=== PATIENT | female | born 1960 | race Caucasian/White ===

== ENCOUNTER 2017-11-15 17:56 | Inpatient (IN) | payer OTHER ==
[2017-11-15 18:58] LABS: URINE BLOOD (Dip) POC Trace-intact (NEGATIVE); URINE GLUCOSE (Dip) POC Negative (NEGATIVE); URINE KETONES (Dip) POC Trace (NEGATIVE); URINE LEUKOCYTE EST (Dip) POC 1+ (NEGATIVE); URINE NITRITE (Dip) POC Negative (NEGATIVE); URINE TOTAL PROTEIN POC 3+ (NEGATIVE)
[2017-11-15] MEDS ORDERED: ONDANSETRON 4 MG INJ IV ×2 (19:23→20:30)
[2017-11-15] MEDS: SODIUM CHLORIDE 0.9% 1L BAG IV* (19:26)
[2017-11-15 19:28] LABS: ADD MAN DIFF? NO
[2017-11-15] MEDS ORDERED: PANTOPRAZOLE 40 MG INJ IV (19:30)
[2017-11-15] MEDS ORDERED: LORAZEPAM 2 MG INJ IV (19:30)
[2017-11-15] MEDS ORDERED: MULTIVITAMINS 10 ML, THIAMINE 100 MG, FOLIC ACID 1 MG, MAGNESIUM SULFATE 2 GM in SOD CH... IV (19:30)
[2017-11-15] MEDS: ACETAMINOPHEN 325 MG TAB PO (19:32)
[2017-11-15 19:33] LABS: ABNORMAL IP MESSAGE 1; BASOPHILS % 0.2 % (0.0-2.0); EOSINOPHILS % 0.2 % (0.0-7.0); HEMATOCRIT 24.7 % (37.0-47.0); HEMOGLOBIN 7.1 g/dl (12.0-16.0); LYMPHOCYTES # 0.6 10^3/ul (0.8-2.9); LYMPHOCYTES % 5.1 % (15.0-51.0); MEAN CORPUSCULAR HEMOGLOBIN 19.9 pg (29.0-33.0); MEAN CORPUSCULAR HGB CONC 28.7 g/dl (32.0-37.0); MEAN CORPUSCULAR VOLUME 69.2 fl (82.0-101.0); MEAN PLATELET VOLUME 9.6 fl (7.4-10.4); MONOCYTE # 0.6 10^3/ul (0.3-0.9); MONOCYTES % 5.1 % (0.0-11.0); NEUTROPHIL # 10.9 10^3/ul (1.6-7.5); NEUTROPHILS % 88.9 % (39.0-77.0); NUCLEATED RED BLOOD CELLS% 0.2 /100WBC (0.0-0.0); PLATELET COUNT 309 10^3/UL (140-415); RED BLOOD COUNT 3.57 10^6/ul (4.20-5.40); RED CELL DISTRIBUTION WIDTH 16.1 % (11.5-14.5)
[2017-11-15 19:33] LABS: WHITE BLOOD COUNT 12.3 10^3/ul (4.8-10.8)
[2017-11-15] MEDS: ONDANSETRON 4 MG INJ IV (19:34)
[2017-11-15] MEDS: morphine 4 MG/ML VIAL IV (19:34)
[2017-11-15 19:35] LABS: POSITIVE DIFF @See below
[2017-11-15] MEDS: CEFEPIME 2GM/50 ML (PMX) 50 ML IVPB (19:38)
[2017-11-15 19:48] LABS: PARTIAL THROMBOPLASTIN TIME 27.4 Sec (25.0-35.0); PROTIME 13.3 Sec (11.9-14.9)
[2017-11-15 19:52] LABS: LACTIC ACID 1.8 mmol/L (0.5-2.0)
[2017-11-15 19:53] LABS: ALANINE AMINOTRANSFERASE 31 IU/L (13-69); ALBUMIN 4.1 g/dl (3.3-4.9); ALBUMIN/GLOBULIN RATIO 1.24; ALKALINE PHOSPHATASE 119 IU/L (42-121); ANION GAP 17 (8-16); ASPARTATE AMINO TRANSFERASE 26 IU/L (15-46); BILIRUBIN,INDIRECT 0.4 mg/dl (0-1.1); BILIRUBIN,TOTAL 0.4 mg/dl (0.2-1.3); BLOOD UREA NITROGEN 10 mg/dl (7-20); CALCIUM 9.3 mg/dl (8.4-10.2); CARBON DIOXIDE 25 mmol/L (21-31); CHLORIDE 98 mmol/L (97-110); CREATININE 0.74 mg/dl (0.44-1.00); GLUCOSE 137 mg/dl (70-220); LIPASE 76 U/L (23-300); POTASSIUM 3.8 mmol/L (3.5-5.1); SODIUM 136 mmol/L (135-144); TOTAL PROTEIN 7.4 g/dl (6.1-8.1)
[2017-11-15 20:07] LABS: TROPONIN-I < 0.010 ng/ml (0.000-0.120)
[2017-11-15] MEDS ORDERED: ACETAMINOPHEN 325 MG TAB PO (20:30)
[2017-11-15] MEDS: VANCOMYCIN 1 GM (PMX) 250 ML IVPB (20:41)
[2017-11-15] MEDS ORDERED: BISACODYL (EC) 5 MG TAB PO (21:00)
[2017-11-15] MEDS ORDERED: NACL 0.9% 3 ML SYG IV (21:00)
[2017-11-15] MEDS: INSULIN ASPART [NOVOLOG] 3 ML PEN SC (21:00)
[2017-11-15] MEDS ORDERED: DOCUSATE SODIUM 100 MG CAP PO (21:00)
[2017-11-15] MEDS ORDERED: GLUCAGON 1 MG INJ IM (21:15)
[2017-11-15] MEDS ORDERED: DEXTROSE 50% 50 ML SYRINGE IV ×2 (21:15)
[2017-11-15] MEDS ORDERED: GLUCOSE GEL 15 GRAM TUBE BUCCAL (21:15)
[2017-11-15] MEDS ORDERED: GLUCOSE GEL 15 GRAM TUBE PO ×2 (21:15)
[2017-11-15 21:37] LABS: LACTIC ACID 1.1 mmol/L (0.5-2.0)
[2017-11-15] MEDS: ATORVASTATIN 40 MG TAB PO (22:51)
[2017-11-15] MEDS: CALCIUM/VITAMIN D (500/200) TAB PO (22:51)
[2017-11-16 00:55] LABS: LACTIC ACID 0.9 mmol/L (0.5-2.0)
[2017-11-16] MEDS: ACCU-CHEK XX (02:00)
[2017-11-16] MEDS: ACETAMINOPHEN 325 MG TAB PO ×3 (02:52→20:14)
[2017-11-16] MEDS: morphine 2 MG INJ IV (04:06)
[2017-11-16] MEDS: IBUPROFEN 600 MG TAB PO (04:49)
[2017-11-16 06:14] LABS: ADD MAN DIFF? NO
[2017-11-16] MEDS: PANTOPRAZOLE (EC) 40 MG TAB PO (06:17)
[2017-11-16 06:18] LABS: ABNORMAL IP MESSAGE 1; BASOPHILS % 0.3 % (0.0-2.0); EOSINOPHILS % 0.1 % (0.0-7.0); HEMATOCRIT 22.9 % (37.0-47.0); LYMPHOCYTES % 10.6 % (15.0-51.0); MEAN CORPUSCULAR HEMOGLOBIN 20.4 pg (29.0-33.0); MEAN CORPUSCULAR HGB CONC 28.8 g/dl (32.0-37.0); MEAN CORPUSCULAR VOLUME 70.9 fl (82.0-101.0); MEAN PLATELET VOLUME 10.1 fl (7.4-10.4); MONOCYTE # 0.6 10^3/ul (0.3-0.9); MONOCYTES % 6.3 % (0.0-11.0); NEUTROPHIL # 7.4 10^3/ul (1.6-7.5); NEUTROPHILS % 82.3 % (39.0-77.0); NUCLEATED RED BLOOD CELLS% 0.2 /100WBC (0.0-0.0); PLATELET COUNT 246 10^3/UL (140-415); RED BLOOD COUNT 3.23 10^6/ul (4.20-5.40); RED CELL DISTRIBUTION WIDTH 17.3 % (11.5-14.5)
[2017-11-16 06:41] LABS: IRON 28 ug/dl (35-150)
[2017-11-16 06:43] LABS: HEMOGLOBIN A1C 7.5 % (0-5.9)
[2017-11-16 06:50] LABS: % IRON SATURATION 7 % SAT (22-52); TOTAL IRON BINDING CAPACITY 387 ug/dl (241-421)
[2017-11-16 07:02] LABS: POSITIVE DIFF @See below
[2017-11-16 07:04] LABS: HEMOGLOBIN 6.6 g/dl (12.0-16.0)
[2017-11-16 07:05] LABS: PATH REVIEW? YES
[2017-11-16 07:10] LABS: ALANINE AMINOTRANSFERASE 27 IU/L (13-69); ALBUMIN 3.1 g/dl (3.3-4.9); ALBUMIN/GLOBULIN RATIO 0.96; ALKALINE PHOSPHATASE 83 IU/L (42-121); ANION GAP 10 (8-16); ASPARTATE AMINO TRANSFERASE 19 IU/L (15-46); BILIRUBIN,INDIRECT 0.4 mg/dl (0-1.1); BILIRUBIN,TOTAL 0.4 mg/dl (0.2-1.3); BLOOD UREA NITROGEN 10 mg/dl (7-20); CALCIUM 7.8 mg/dl (8.4-10.2); CARBON DIOXIDE 24 mmol/L (21-31); CHLORIDE 105 mmol/L (97-110); CHOL/HDL RATIO 2.5 RATIO; CHOLESTEROL 90 mg/dl (100-200); CREATININE 0.72 mg/dl (0.44-1.00); GLUCOSE 96 mg/dl (70-220); HDL CHOLESTEROL 35 mg/dl (35-98); LDL CHOLESTEROL,CALCULATED 35 mg/dl; MAGNESIUM 1.5 mg/dl (1.7-2.5); POTASSIUM 3.2 mmol/L (3.5-5.1); SODIUM 136 mmol/L (135-144); TOTAL PROTEIN 6.3 g/dl (6.1-8.1); TRIGLYCERIDES 99 mg/dl (0-149)
[2017-11-16] MEDS: CEFTRIAXONE 2 GM/50 ML (PMX) 50 ML IVPB (07:59)
[2017-11-16] MEDS: CALCIUM/VITAMIN D (500/200) TAB PO ×2 (07:59→20:13)
[2017-11-16] MEDS: INSULIN ASPART [NOVOLOG] 3 ML PEN SC ×4 (08:00→20:18)
[2017-11-16] MEDS ORDERED: VANCOMYCIN IV PER PHARMACY XX (09:00)
[2017-11-16] MEDS ORDERED: NON-FORMULARY/PATIENT OWN MED (Omeprazole* 20 MG) PO (09:00)
[2017-11-16] MEDS: POTASSIUM CHLORIDE (SR) 20 MEQ TAB PO ×2 (09:25→20:13)
[2017-11-16] MEDS: MAGNESIUM SULFATE 3 GM in DEXTROSE 5% 100 ML IVPB (10:05)
[2017-11-16 10:18] LABS: RETICULOCYTE RBC 3.42
[2017-11-16 10:18] LABS: RETICULOCYTE COUNT # 0.039 X10^6 (0.020-0.110); RETICULOCYTE COUNT % 1.1 % (0.5-1.5)
[2017-11-16 10:51] LABS: LACTATE DEHYDROGENASE 423 IU/L (313-618)
[2017-11-16 11:22] LABS: CANCER ANTIGEN 125 < 5.5 U/ml (0.0-35.0)
[2017-11-16 11:22] LABS: CARCINOEMBRYONIC ANTIGEN 0.6 ng/ml (0.0-5.0)
[2017-11-16 11:59] LABS: FOLATE 12.4 ng/ml (2.8-20.0)
[2017-11-16] MEDS ORDERED: metroNIDAZOLE 500 MG/NS (PMX) 100 ML IVPB (12:00)
[2017-11-16 13:05] LABS: IMMEDIATE SPIN CROSSMATCH 1 3
[2017-11-16] MEDS: VANCOMYCIN 1 GM 250 ML IVPB (13:09)
[2017-11-16] MEDS: PIPER-TAZO 3.375 GM IV (PMX) 100 ML IVPB ×3 (15:29→21:32)
[2017-11-16 15:43] LABS: HEMATOCRIT 27.3 % (37.0-47.0); HEMOGLOBIN 8.1 g/dl (12.0-16.0)
[2017-11-16] MEDS: SOD FERRIC GLUC COMPLX 125 MG in SOD CHLORIDE 0.9% 100 ML IVPB (16:45)
[2017-11-16 18:27] LABS: OCCULT BLOOD STOOL NEGATIVE (NEGATIVE)
[2017-11-16] MEDS: INSULIN GLARGINE [LANTus] (100 UNITS/ML) SYG SC (20:12)
[2017-11-16] MEDS: ATORVASTATIN 40 MG TAB PO (20:13)
[2017-11-17] MEDS: VANCOMYCIN 1 GM 250 ML IVPB ×2 (00:27→13:41)
[2017-11-17] MEDS: ACCU-CHEK XX (02:00)
[2017-11-17] MEDS: PIPER-TAZO 3.375 GM IV (PMX) 100 ML IVPB ×5 (03:17→17:17)
[2017-11-17] MEDS: PANTOPRAZOLE (EC) 40 MG TAB PO (05:59)
[2017-11-17] MEDS: ACETAMINOPHEN 325 MG TAB PO (06:03)
[2017-11-17 06:16] LABS: ADD MAN DIFF? NO
[2017-11-17 06:17] LABS: BASOPHILS % 0.3 % (0.0-2.0); EOSINOPHILS % 0.3 % (0.0-7.0); HEMATOCRIT 27.3 % (37.0-47.0); HEMOGLOBIN 8.3 g/dl (12.0-16.0); LYMPHOCYTES # 1.2 10^3/ul (0.8-2.9); LYMPHOCYTES % 10.3 % (15.0-51.0); MEAN CORPUSCULAR HGB CONC 30.4 g/dl (32.0-37.0); MEAN CORPUSCULAR VOLUME 72.2 fl (82.0-101.0); MEAN PLATELET VOLUME 10.1 fl (7.4-10.4); MONOCYTE # 0.9 10^3/ul (0.3-0.9); MONOCYTES % 7.6 % (0.0-11.0); NEUTROPHIL # 9.4 10^3/ul (1.6-7.5); NUCLEATED RED BLOOD CELLS # 0.1 10^3/ul (0.0-0.0); NUCLEATED RED BLOOD CELLS% 0.4 /100WBC (0.0-0.0); PLATELET COUNT 247 10^3/UL (140-415); RED BLOOD COUNT 3.78 10^6/ul (4.20-5.40); RED CELL DISTRIBUTION WIDTH 17.6 % (11.5-14.5)
[2017-11-17 06:17] LABS: WHITE BLOOD COUNT 11.7 10^3/ul (4.8-10.8)
[2017-11-17 06:45] LABS: PHOSPHORUS 2.5 mg/dl (2.5-4.9)
[2017-11-17 06:59] LABS: ANION GAP 14 (8-16); BLOOD UREA NITROGEN 6 mg/dl (7-20); CALCIUM 8.3 mg/dl (8.4-10.2); CARBON DIOXIDE 23 mmol/L (21-31); CHLORIDE 104 mmol/L (97-110); GLUCOSE 103 mg/dl (70-220); POTASSIUM 3.7 mmol/L (3.5-5.1); SODIUM 137 mmol/L (135-144)
[2017-11-17] MEDS: INSULIN ASPART [NOVOLOG] 3 ML PEN SC ×4 (08:00→21:00)
[2017-11-17] MEDS: LOSARTAN 50 MG TAB PO (09:02)
[2017-11-17] MEDS: CALCIUM/VITAMIN D (500/200) TAB PO ×2 (09:03→21:51)
[2017-11-17] MEDS: POLYETHYLENE GLYCOL 3350 119 GM POWDER PO ×2 (09:09→17:17)
[2017-11-17] MEDS: MAGNESIUM CITRATE 300 ML BTL PO (09:09)
[2017-11-17] MEDS: BISACODYL (EC) 5 MG TAB PO ×2 (09:10→17:19)
[2017-11-17 09:31] LABS: PROTEIN, TOTAL 6.2 g/dL (6.1-8.1)
[2017-11-17] MEDS: SOD CHLORIDE 0.9% 250 ML IV (12:28)
[2017-11-17] MEDS: SOD FERRIC GLUC COMPLX 125 MG in SOD CHLORIDE 0.9% 100 ML IVPB (17:17)
[2017-11-17] MEDS ORDERED: morphine LIQ (10 MG/5 ML) CUP PO (20:00)
[2017-11-17] MEDS: ATORVASTATIN 40 MG TAB PO (21:51)
[2017-11-17] MEDS: INSULIN GLARGINE [LANTus] (100 UNITS/ML) SYG SC (21:53)
[2017-11-18] MEDS: PIPER-TAZO 3.375 GM IV (PMX) 100 ML IVPB ×4 (00:19→20:48)
[2017-11-18] MEDS: ACCU-CHEK XX (02:00)
[2017-11-18 02:18] LABS: VANCOMYCIN,TROUGH 12.3 ug/ml (10.0-20.0)
[2017-11-18] MEDS: VANCOMYCIN 1 GM 250 ML IVPB ×2 (02:40→18:28)
[2017-11-18] MEDS: PANTOPRAZOLE (EC) 40 MG TAB PO (06:18)
[2017-11-18 06:46] LABS: ADD MAN DIFF? NO
[2017-11-18 06:51] LABS: WHITE BLOOD COUNT 7.9 10^3/ul (4.8-10.8)
[2017-11-18 06:51] LABS: BASOPHIL # 0.1 10^3/ul (0.0-0.1); BASOPHILS % 0.9 % (0.0-2.0); EOSINOPHILS # 0.2 10^3/ul (0.0-0.5); EOSINOPHILS % 2.7 % (0.0-7.0); HEMATOCRIT 30.4 % (37.0-47.0); HEMOGLOBIN 9.1 g/dl (12.0-16.0); LYMPHOCYTES # 1.5 10^3/ul (0.8-2.9); LYMPHOCYTES % 18.7 % (15.0-51.0); MEAN CORPUSCULAR HEMOGLOBIN 21.8 pg (29.0-33.0); MEAN CORPUSCULAR HGB CONC 29.9 g/dl (32.0-37.0); MEAN CORPUSCULAR VOLUME 72.7 fl (82.0-101.0); MEAN PLATELET VOLUME 10.3 fl (7.4-10.4); MONOCYTE # 1.1 10^3/ul (0.3-0.9); MONOCYTES % 14.1 % (0.0-11.0); NEUTROPHIL # 4.9 10^3/ul (1.6-7.5); NEUTROPHILS % 62.6 % (39.0-77.0); PLATELET COUNT 277 10^3/UL (140-415); RED BLOOD COUNT 4.18 10^6/ul (4.20-5.40); RED CELL DISTRIBUTION WIDTH 18.1 % (11.5-14.5)
[2017-11-18 07:19] LABS: MAGNESIUM 1.9 mg/dl (1.7-2.5)
[2017-11-18 07:19] LABS: PHOSPHORUS 3.6 mg/dl (2.5-4.9)
[2017-11-18 07:20] LABS: ALANINE AMINOTRANSFERASE 26 IU/L (13-69); ALBUMIN 3.5 g/dl (3.3-4.9); ALBUMIN/GLOBULIN RATIO 1.12; ALKALINE PHOSPHATASE 95 IU/L (42-121); ANION GAP 10 (8-16); ASPARTATE AMINO TRANSFERASE 29 IU/L (15-46); BILIRUBIN,INDIRECT 0.4 mg/dl (0-1.1); BILIRUBIN,TOTAL 0.4 mg/dl (0.2-1.3); BLOOD UREA NITROGEN 5 mg/dl (7-20); CALCIUM 8.6 mg/dl (8.4-10.2); CARBON DIOXIDE 24 mmol/L (21-31); CHLORIDE 109 mmol/L (97-110); CREATININE 0.69 mg/dl (0.44-1.00); GLUCOSE 87 mg/dl (70-220); POTASSIUM 3.3 mmol/L (3.5-5.1); SODIUM 140 mmol/L (135-144); TOTAL PROTEIN 6.6 g/dl (6.1-8.1)
[2017-11-18] MEDS: INSULIN ASPART [NOVOLOG] 3 ML PEN SC ×4 (08:00→21:00)
[2017-11-18] MEDS: LOSARTAN 50 MG TAB PO (08:32)
[2017-11-18] MEDS: CALCIUM/VITAMIN D (500/200) TAB PO ×2 (08:32→20:08)
[2017-11-18] MEDS ORDERED: POTASSIUM CHLORIDE (SR) 20 MEQ TAB PO (09:04)
[2017-11-18] MEDS: FERROUS SULFATE (EC) 325 MG TAB PO ×3 (09:22→22:30)
[2017-11-18] MEDS: BARIUM SULF 2% 450 ML BTL (BERRY SMOOTHIE) PO (11:00)
[2017-11-18] MEDS: POTASSIUM CHLORIDE 100 ML IVPB (12:00)
[2017-11-18] MEDS ORDERED: hydrALAzine 20 MG INJ (14:31)
[2017-11-18] MEDS ORDERED: PROPOFOL 40 ML (14:31)
[2017-11-18] MEDS: ONDANSETRON 4 MG TAB PO (15:50)
[2017-11-18] MEDS: ONDANSETRON INJ 8 MG in DEXTROSE 5% 50 ML IV (17:55)
[2017-11-18] MEDS: ACETAMINOPHEN 325 MG TAB PO (20:06)
[2017-11-18] MEDS: ATORVASTATIN 40 MG TAB PO (20:08)
[2017-11-18] MEDS: INSULIN GLARGINE [LANTus] (100 UNITS/ML) SYG SC (20:18)
[2017-11-18] MEDS: SOD FERRIC GLUC COMPLX 125 MG in SOD CHLORIDE 0.9% 100 ML IVPB (22:07)
[2017-11-19] MEDS: PIPER-TAZO 3.375 GM IV (PMX) 100 ML IVPB ×3 (01:25→12:54)
[2017-11-19] MEDS: ACCU-CHEK XX (01:56)
[2017-11-19] MEDS: PANTOPRAZOLE (EC) 40 MG TAB PO ×2 (05:37→05:38)
[2017-11-19 07:41] LABS: ADD MAN DIFF? NO
[2017-11-19 07:51] LABS: WHITE BLOOD COUNT 8.8 10^3/ul (4.8-10.8)
[2017-11-19 07:51] LABS: ADD UMIC YES; BASOPHIL # 0.1 10^3/ul (0.0-0.1); BASOPHILS % 0.7 % (0.0-2.0); EOSINOPHILS # 0.2 10^3/ul (0.0-0.5); EOSINOPHILS % 2.1 % (0.0-7.0); HEMATOCRIT 30.1 % (37.0-47.0); HEMOGLOBIN 9.1 g/dl (12.0-16.0); LYMPHOCYTES # 1.8 10^3/ul (0.8-2.9); LYMPHOCYTES % 20.1 % (15.0-51.0); MEAN CORPUSCULAR HEMOGLOBIN 21.9 pg (29.0-33.0); MEAN CORPUSCULAR HGB CONC 30.2 g/dl (32.0-37.0); MEAN CORPUSCULAR VOLUME 72.5 fl (82.0-101.0); MEAN PLATELET VOLUME 9.9 fl (7.4-10.4); MONOCYTES % 11.9 % (0.0-11.0); NEUTROPHIL # 5.6 10^3/ul (1.6-7.5); NEUTROPHILS % 64.1 % (39.0-77.0); PLATELET COUNT 294 10^3/UL (140-415); RED BLOOD COUNT 4.15 10^6/ul (4.20-5.40); RED CELL DISTRIBUTION WIDTH 18.7 % (11.5-14.5); UR ASCORBIC ACID NEGATIVE (NEGATIVE); UR BILIRUBIN (Dip) NEGATIVE (NEGATIVE); UR BLOOD (Dip) NEGATIVE (NEGATIVE); UR CLARITY CLEAR (CLEAR); UR COLOR YELLOW (YELLOW); UR GLUCOSE (Dip) NEGATIVE (NEGATIVE); UR KETONES (Dip) 1+ mg/dL (NEGATIVE); UR LEUKOCYTE ESTERASE (Dip) NEGATIVE Leu/ul (NEGATIVE); UR NITRITE (Dip) NEGATIVE (NEGATIVE); UR RBC 1 /HPF (0-5); UR SPECIFIC GRAVITY (Dip) 1.024 (1.003-1.030); UR TOTAL PROTEIN (Dip) 2+ mg/dl (NEGATIVE); UR UROBILINOGEN (Dip) NEGATIVE (NEGATIVE); UR WBC 3 /HPF (0-5)
[2017-11-19] MEDS: INSULIN ASPART [NOVOLOG] 3 ML PEN SC ×3 (08:00→18:16)
[2017-11-19] MEDS: VANCOMYCIN 1 GM 250 ML IVPB (08:24)
[2017-11-19 08:25] LABS: ANION GAP 14 (8-16); BLOOD UREA NITROGEN 7 mg/dl (7-20); CALCIUM 8.8 mg/dl (8.4-10.2); CARBON DIOXIDE 22 mmol/L (21-31); CHLORIDE 106 mmol/L (97-110); CREATININE 0.74 mg/dl (0.44-1.00); GLUCOSE 84 mg/dl (70-220); POTASSIUM 3.1 mmol/L (3.5-5.1); SODIUM 139 mmol/L (135-144)
[2017-11-19] MEDS: CALCIUM/VITAMIN D (500/200) TAB PO (08:28)
[2017-11-19] MEDS: FERROUS SULFATE (EC) 325 MG TAB PO (08:28)
[2017-11-19] MEDS: LOSARTAN 50 MG TAB PO (08:29)
[2017-11-19 09:55] LABS: MAGNESIUM 1.6 mg/dl (1.7-2.5)
[2017-11-19] MEDS: IOHEXOL 14.3 MG(I)/ML (ADULT) BTL PO (10:09)
[2017-11-19] MEDS: IOHEXOL 300MG/ML 150 ML BTL (13:30)
[2017-11-19] MEDS: SOD CHLORIDE 0.9% 100 ML (13:30)
[2017-11-19] MEDS: POTASSIUM CHLORIDE (SR) 20 MEQ TAB PO (13:47)
[2017-11-19] MEDS: SOD FERRIC GLUC COMPLX 125 MG in SOD CHLORIDE 0.9% 100 ML IVPB (18:05)
[2017-11-19 18:31] LABS: HAPTOGLOBIN 220 mg/dL (43-212)
[2017-11-19 23:04] LABS: ALBUMIN 3.3 g/dL (3.8-4.8); ALPHA-1-GLOBULINS 0.3 g/dL (0.2-0.3); ALPHA-2-GLOBULINS 0.7 g/dL (0.5-0.9); BETA 2 GLOBULINS 0.3 g/dL (0.2-0.5); BETA GLOBULINS 0.5 g/dL (0.4-0.6); GAMMA GLOBULINS 1.1 g/dL (0.8-1.7)
== END 2017-11-19 18:45 | disposition home or self-care (01) | DRG 872 ==
LOC: E/R 17:56 → 2NE 20:29
PROVIDERS: Family Medicine
PROC: 0DB98ZX Excision of Duodenum, Via Natural or Artificial Opening Endoscopic, Diagnostic (ICD-10-PCS; principal; 2017-11-18 13:30)
PROC: 0DJD8ZZ Inspection of Lower Intestinal Tract, Via Natural or Artificial Opening Endoscopic (ICD-10-PCS; 2017-11-18 13:30)
PROC: 30233N1 Transfusion of Nonautologous Red Blood Cells into Peripheral Vein, Percutaneous Approach (ICD-10-PCS; 2017-11-18 13:30)
PROC: 30233N1 Transfusion of Nonautologous Red Blood Cells into Peripheral Vein, Percutaneous Approach (ICD-10-PCS; 2017-11-18 13:30)
DX: A41.9 Sepsis, unspecified organism (principal); N39.0 Urinary tract infection, site not specified; D50.9 Iron deficiency anemia, unspecified; E11.9 Type 2 diabetes mellitus without complications; I10 Essential (primary) hypertension; E78.5 Hyperlipidemia, unspecified; R11.2 Nausea with vomiting, unspecified; R19.7 Diarrhea, unspecified; K21.9 Gastro-esophageal reflux disease without esophagitis; Z90.12 Acquired absence of left breast and nipple; Z85.3 Personal history of malignant neoplasm of breast; Z79.4 Long term (current) use of insulin
CPT/HCPCS: 36415; 36430; 70450; 71045; 71260; 72040; 73030-RT; 74177; 76856; 80048; 80053; 80061; 80202; 81001; 81003; 82270; 82378; 82607; 82728; 82746; 82962; 83010; 83036; 83540; 83605; 83615; 83690; 83735; 84100; 84155; 84165; 84443; 84484; 85014; 85018; 85025; 85045; 85610; 85730; 86304; 86674; 86850; 86900; 86901; 86920; 87040; 87045; 87075; 87086; 87177; 87400; 88305; 93005; 96365; 96375; 99291-25

== ENCOUNTER 2018-09-10 10:32 | Observation (INO) | payer OTHER ==
[2018-09-10] MEDS: ASPIRIN 325 MG TAB PO (11:13)
[2018-09-10 11:26] LABS: ADD MAN DIFF? NO
[2018-09-10 11:30] LABS: WHITE BLOOD COUNT 9.9 10^3/ul (4.8-10.8)
[2018-09-10 11:30] LABS: BASOPHIL # 0.1 10^3/ul (0.0-0.1); BASOPHILS % 0.7 % (0.0-2.0); EOSINOPHILS # 0.4 10^3/ul (0.0-0.5); EOSINOPHILS % 3.9 % (0.0-7.0); HEMOGLOBIN 10.2 g/dl (12.0-16.0); LYMPHOCYTES # 3.3 10^3/ul (0.8-2.9); LYMPHOCYTES % 33.2 % (15.0-51.0); MEAN CORPUSCULAR HEMOGLOBIN 24.9 pg (29.0-33.0); MEAN CORPUSCULAR VOLUME 83.1 fl (82.0-101.0); MEAN PLATELET VOLUME 10.6 fl (7.4-10.4); MONOCYTE # 0.8 10^3/ul (0.3-0.9); MONOCYTES % 7.7 % (0.0-11.0); NEUTROPHIL # 5.4 10^3/ul (1.6-7.5); NEUTROPHILS % 54.1 % (39.0-77.0); RED BLOOD COUNT 4.09 10^6/ul (4.20-5.40); RED CELL DISTRIBUTION WIDTH 14.6 % (11.5-14.5)
[2018-09-10 11:46] LABS: ALANINE AMINOTRANSFERASE 13 IU/L (13-69); ALBUMIN 4.6 g/dl (3.3-4.9); ALBUMIN/GLOBULIN RATIO 1.17; ALKALINE PHOSPHATASE 140 IU/L (42-121); ANION GAP 13 (5-13); ASPARTATE AMINO TRANSFERASE 41 IU/L (15-46); BILIRUBIN,INDIRECT 0.5 mg/dl (0-1.1); BILIRUBIN,TOTAL 0.5 mg/dl (0.2-1.3); BLOOD UREA NITROGEN 10 mg/dl (7-20); CALCIUM 9.3 mg/dl (8.4-10.2); CARBON DIOXIDE 24 mmol/L (21-31); CHLORIDE 102 mmol/L (97-110); Estimated GFR > 60 mL/min (>60); GLUCOSE 107 mg/dl (70-220); POTASSIUM 4.7 mmol/L (3.5-5.1); SODIUM 139 mmol/L (135-144); TOTAL PROTEIN 8.5 g/dl (6.1-8.1)
[2018-09-10 11:53] LABS: PLATELET COUNT 226 10^3/UL (140-415); POSITIVE DIFF @See below
[2018-09-10 11:57] LABS: TROPONIN-I < 0.012 ng/ml (0.000-0.120)
[2018-09-10] MEDS ORDERED: ACETAMINOPHEN 325 MG TAB PO ×2 (12:30→14:30)
[2018-09-10] MEDS ORDERED: ONDANSETRON 4 MG INJ IV ×2 (12:30→14:30)
[2018-09-10] MEDS ORDERED: NITROGLYCERIN (SL) 0.4 MG TAB SL (14:30)
[2018-09-10] MEDS ORDERED: hydrALAzine 20 MG INJ IV (14:30)
[2018-09-10] MEDS ORDERED: NACL 0.9% 3 ML SYG IV (14:30)
[2018-09-10] MEDS ORDERED: LORAZEPAM 2 MG INJ IV (14:30)
[2018-09-10] MEDS ORDERED: HYDROCODONE/APAP (5/325) TAB PO (14:30)
[2018-09-10] MEDS ORDERED: DOCUSATE SODIUM 100 MG CAP PO (14:30)
[2018-09-10] MEDS ORDERED: MAGNESIUM HYDROXIDE 30ML CUP PO (14:30)
[2018-09-10] MEDS ORDERED: ALBUTEROL/IPRATROPIUM (NEB) 3 ML AMP HHN (14:30)
[2018-09-10] MEDS ORDERED: morphine 2 MG INJ IV (14:30)
[2018-09-10] MEDS: SOD CHLORIDE 0.45% 1,000 ML IV (15:17)
[2018-09-10 15:53] LABS: FREE T4 (FREE THYROXINE) 1.18 ng/dl (0.64-1.79)
[2018-09-10] MEDS: INSULIN ASPART [NOVOLOG] 3 ML PEN SC ×2 (18:05→21:00)
[2018-09-10 19:01] LABS: CREATINE KINASE 58 IU/L (23-200)
[2018-09-10 19:10] LABS: CK INDEX 0.4; CK-MB < 0.22 ng/ml (0.0-2.4)
[2018-09-10 19:14] LABS: TROPONIN-I < 0.012 ng/ml (0.000-0.120)
[2018-09-10] MEDS: FERROUS SULFATE (EC) 325 MG TAB PO (21:42)
[2018-09-10] MEDS: GABAPENTIN 300 MG CAP PO (21:42)
[2018-09-10] MEDS: traZODone 50 MG TAB PO (21:42)
[2018-09-10] MEDS: ATORVASTATIN 40 MG TAB PO (21:42)
[2018-09-10] MEDS: CALCIUM/VITAMIN D (500/200) TAB PO (21:43)
[2018-09-10] MEDS: FAMOTIDINE 20 MG TAB PO (21:43)
[2018-09-11 01:18] LABS: CREATINE KINASE 59 IU/L (23-200)
[2018-09-11 01:31] LABS: CK INDEX 0.4; CK-MB < 0.22 ng/ml (0.0-2.4); TROPONIN-I < 0.012 ng/ml (0.000-0.120)
[2018-09-11] MEDS ORDERED: ACCU-CHEK XX ×2 (02:00)
[2018-09-11] MEDS: SOD CHLORIDE 0.45% 1,000 ML IV ×2 (03:49→06:33)
[2018-09-11 05:46] LABS: ADD MAN DIFF? NO
[2018-09-11 05:47] LABS: BASOPHIL # 0.1 10^3/ul (0.0-0.1); BASOPHILS % 0.8 % (0.0-2.0); EOSINOPHILS # 0.3 10^3/ul (0.0-0.5); EOSINOPHILS % 4.2 % (0.0-7.0); HEMATOCRIT 30.4 % (37.0-47.0); HEMOGLOBIN 9.2 g/dl (12.0-16.0); LYMPHOCYTES # 2.3 10^3/ul (0.8-2.9); LYMPHOCYTES % 31.8 % (15.0-51.0); MEAN CORPUSCULAR HEMOGLOBIN 24.3 pg (29.0-33.0); MEAN CORPUSCULAR HGB CONC 30.3 g/dl (32.0-37.0); MEAN CORPUSCULAR VOLUME 80.2 fl (82.0-101.0); MEAN PLATELET VOLUME 9.9 fl (7.4-10.4); MONOCYTE # 0.7 10^3/ul (0.3-0.9); MONOCYTES % 9.8 % (0.0-11.0); NEUTROPHIL # 3.9 10^3/ul (1.6-7.5); NEUTROPHILS % 53.1 % (39.0-77.0); PLATELET COUNT 307 10^3/UL (140-415); RED BLOOD COUNT 3.79 10^6/ul (4.20-5.40); RED CELL DISTRIBUTION WIDTH 14.6 % (11.5-14.5)
[2018-09-11 05:47] LABS: WHITE BLOOD COUNT 7.4 10^3/ul (4.8-10.8)
[2018-09-11 06:25] LABS: CHOL/HDL RATIO 3.2 RATIO; HDL CHOLESTEROL 35 mg/dl (35-98); LDL CHOLESTEROL,CALCULATED 45 mg/dl; TRIGLYCERIDES 164 mg/dl (0-149)
[2018-09-11 06:25] LABS: CHOLESTEROL 113 mg/dl (100-200)
[2018-09-11 06:26] LABS: ANION GAP 11 (5-13); BLOOD UREA NITROGEN 13 mg/dl (7-20); CALCIUM 9.3 mg/dl (8.4-10.2); CARBON DIOXIDE 27 mmol/L (21-31); CHLORIDE 103 mmol/L (97-110); CREATININE 0.76 mg/dl (0.44-1.00); Estimated GFR > 60 mL/min (>60); GLUCOSE 131 mg/dl (70-220); MAGNESIUM 1.8 mg/dl (1.7-2.5); PHOSPHORUS 5.2 mg/dl (2.5-4.9); POTASSIUM 3.9 mmol/L (3.5-5.1); SODIUM 141 mmol/L (135-144)
[2018-09-11 06:37] LABS: CREATINE KINASE 49 IU/L (23-200)
[2018-09-11 06:40] LABS: HEMOGLOBIN A1C 6.6 % (0-5.9)
[2018-09-11 06:41] LABS: CK INDEX 0.4; CK-MB < 0.22 ng/ml (0.0-2.4); TROPONIN-I < 0.012 ng/ml (0.000-0.120)
[2018-09-11] MEDS: CALCIUM/VITAMIN D (500/200) TAB PO (08:17)
[2018-09-11] MEDS: ASPIRIN (EC) 325 MG TAB PO (08:17)
[2018-09-11] MEDS: FAMOTIDINE 20 MG TAB PO (08:17)
[2018-09-11] MEDS: GABAPENTIN 300 MG CAP PO (08:17)
[2018-09-11] MEDS: FERROUS SULFATE (EC) 325 MG TAB PO (08:17)
[2018-09-11] MEDS: INSULIN ASPART [NOVOLOG] 3 ML PEN SC ×2 (08:21→11:45)
== END 2018-09-11 13:20 | disposition home or self-care (01) ==
LOC: E/R 10:32 → 6WM 12:26
DX: R07.9 Chest pain, unspecified (principal); E78.5 Hyperlipidemia, unspecified; E11.9 Type 2 diabetes mellitus without complications; I10 Essential (primary) hypertension; E78.00 Pure hypercholesterolemia, unspecified; Z79.82 Long term (current) use of aspirin; Z79.84 Long term (current) use of oral hypoglycemic drugs; Z85.3 Personal history of malignant neoplasm of breast; Z92.3 Personal history of irradiation
CPT/HCPCS: 36415; 71045; 80048; 80053; 80061; 82550; 82553; 82962; 83036; 83735; 84100; 84439; 84443; 84484; 85025; 93005; 93306; 97161; 99217; 99285-25